=== PATIENT | male | born 2005 | race African-American/Black ===

== ENCOUNTER 2023-04-05 22:26 | Emergency (ER) | payer OTHER, SELFPAY ==
[2023-04-05 22:27] VITALS: BP 162/93; PULSE 104; RESP 18; TEMP 36.8; O2SAT 100; BMI 23.7
--- NOTE | 2023-04-05 23:02 | EDS_ITS ---
HPI History of Present Illness Chief Complaint: Lower Extremity Injury Informant: patient Narrative Narrative: 4-5 days of pain in her right Achilles tendon. 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 Was not sudden onset, started gradually and has become worse today with track practice. He states he is here to find out if he has microtears or not. Still able to walk. No other pain or injury. No numbness or tingling. PFSH PFSH Medical History no medical history no medical history Home Medications NK 04/05/23 [History Last Taken Unknown] Allergy/AdvReac Type Severity Reaction Status Date / Time No Known Allergies Allergy Verified 04/05/23 22:27 Surgical History no surgical history Social History Smoking Status: Never smoker ROS ROS ED Constitutional Constitutional ED: Denies chills or fever(s) Musculoskeletal Musculoskeletal: Reports extremity pain; Denies neck pain Integumentary Denies Abrasions, rash or wounds Neurologic Neurologic: Denies paresthesias or weakness EXAM Physical Exam Const Vital Signs: 04/05/23 22:27 Temperature 98.2 F Temperature Source Temporal Pulse Rate 104 H Respiratory Rate 18 Blood Pressure 162/93 H Blood Pressure Mean 116 Pulse Ox 100 Positive well nourished and well developed General Appearance ED: well developed and NAD Neck full ROM and supple Back/Spine normal ROM and normal to inspection Extremity normal to inspection and full ROM Extremity Narrative: Tender right Achilles tendon no bony tenderness throughout foot, ankle, lower leg. Turning patient prone, Rees's test shows good plantarflexion and is normal. Neuro oriented x3, no focal motor deficits and no sensory deficits noted Sensorium / Orientation: alert Psych mental status grossly normal and thought process normal Skin no wounds Rashes: no rashes MDM MDM MDM Narrative Medical decision making narrative: At this time I discussed with the patient and we are not able to determine the difference between a minor and moderate strain here in the emergency department as we are not able to obtain an MRI which would determine the difference. Rest, anti-inflammatories, ice, and following with team head athletic trainer and/or physical therapist as indicated no matter what, as I discussed with him no device is necessary, just anti-inflammatories he was given a dose prior to discharge. Discharge Plan Triage Chief Complaint: Lower Extremity Injury ED Provider: Yara,Oz Dx/Rx/DC Orders Clinical Impression: Injury of right Achilles tendon Instructions: Understanding Achilles Tendonitis Prescriptions: No Action NK Primary Care Provider: NOT,DEFINED Referrals: Loy Mcguire MD [Med Staff - Active Staff] - 10-14 Days if not better Activity Restrictions/Additional Instructions: Take daily Aleve or ibuprofen, rest no track until cleared by team head athletic trainer/certified athletic trainer/therapist, follow with them first, if not getting better he may follow-up with orthopedics as above. Disposition Disposition: Home, Self Care
[2023-04-05] MEDS: Ibuprofen 600 MG Tablet PO (23:16)
== END 2023-04-05 23:26 | disposition home or self-care (01) ==
LOC: ED 23:21
PROVIDERS: Emergency Provider Emergency Medicine; Visit Provider Emergency Medicine
DX: S86.001A Unspecified injury of right Achilles tendon, initial encounter (principal); X58.XXXA Exposure to other specified factors, initial encounter
CPT/HCPCS: 99282